=== PATIENT | male | born 1955 | race Caucasian/White ===

== ENCOUNTER 2020-10-14 17:17 | Emergency (ER) | payer OTHER ==
[~2020-10-14] VITALS: Ht 175.3 cm; Wt 97.5 kg
--- NOTE | 2020-10-14 17:25 | NUR ---
MALGORZATA GOINS From Home "Weak/dizzy/shaky" BS-77. Patient a/ox4, breathing even and unlabored, no sob noted. Needs attended. Kept comfortable. Dr. Burr at bedside for eval.
[2020-10-14] MEDS ORDERED: MECLIZINE HCL 12.5 MG TABLET PO ONE (17:30)
--- NOTE | 2020-10-14 17:30 | NUR ---
PATIENT PROVIDED A DIABETIC DIET.
[2020-10-14] MEDS ORDERED: MECLIZINE HCL 25 MG TABLET ONE (17:39)
--- NOTE | 2020-10-14 17:54 | NUR ---
patient taken to ct.
[2020-10-14 17:55] LABS: BASOPHILS # (AUTO) 0.1 /CMM (0.0-0.2); BASOPHILS % (AUTO) 0.7 % (0.0-2.0); EOSINOPHILS % (AUTO) 2.3 % (0.0-6.0); HEMATOCRIT 47 % (39-51); HEMOGLOBIN 15.2 g/dL (13.5-17.5); LYMPHOCYTES # (AUTO) 1.7 /CMM (0.8-4.8); LYMPHOCYTES % (AUTO) 23.2 % (20.0-44.0); MEAN CORPUSCULAR HGB CONC 32 g/dl (31.0-36.0); MEAN CORPUSCULAR VOLUME 89 fL (80-96); MONOCYTES # (AUTO) 0.5 /CMM (0.1-1.30); MONOCYTES % (AUTO) 7.2 % (2.0-12.0); NEUTROPHILS % (AUTO) 66.6 % (43.0-81.0); PLATELET COUNT (AUTO) 270 /CMM (150-450); RED BLOOD CELL COUNT(AUTO) 5.29 MIL/uL (4.5-6.0); WHITE BLOOD COUNT (AUTO) 7.5 K/uL (4.3-11.0)
[2020-10-14 18:04] LABS: CALCIUM, SERUM 8.7 mg/dL (8.5-10.1); CARBON DIOXIDE 28 mmol/L (21-32); CHLORIDE 103 mmol/L (98-107); CREATININE 1.1 mg/dL (0.6-1.3); GLUCOSE 103 mg/dL (74-106); POTASSIUM 4.5 mmol/L (3.5-5.1); SODIUM SERUM 139 mmol/L (136-145); UREA NITROGEN, BLOOD 12 mg/dL (7-18)
[2020-10-14] MEDS ORDERED: TAMS-12 PO (18:21)
[2020-10-14] MEDS ORDERED: GLIP1TAB6 PO (18:21)
[2020-10-14] MEDS ORDERED: LEVO50TA8 PO (18:21)
[2020-10-14] MEDS ORDERED: LOSA1TAB36 PO (18:21)
[2020-10-14] MEDS ORDERED: ATOR40TA PO (18:21)
[2020-10-14] MEDS ORDERED: ASPI-1498 PO (18:30)
[2020-10-14] MEDS ORDERED: CLOP75TA15 PO (18:30)
--- NOTE | 2020-10-14 18:54 | NUR ---
PATIENT A/OX4, BREATHING EVEN AND UNLABORED, NO SOB NOTED, NEEDS ATTENDED. KEPT COMFORTABLE. IV removed. Catheter intact and site benign. Pressure and 4x4 applied to site. No bleeding noted. Patient discharged to home in stable condition. Written and verbal after care instructions given. Patient verbalizes understanding of instruction.
[2020-10-14 19:01] VITALS: BP 153/87
== END 2020-10-14 19:01 | disposition home or self-care (01) ==
LOC: ER 17:20
DX: R42 Dizziness and giddiness (principal); I10 Essential (primary) hypertension; E11.9 Type 2 diabetes mellitus without complications; Z86.73 Personal history of transient ischemic attack (TIA), and cerebral infarction without residual deficits; Z79.82 Long term (current) use of aspirin; Z79.84 Long term (current) use of oral hypoglycemic drugs; Z79.899 Other long term (current) drug therapy
CPT/HCPCS: 36415; 70450; 71045; 80048; 82962; 84484; 85025; 93005; 99285; J8597

== ENCOUNTER 2021-07-10 11:59 | Inpatient (IN) | payer MEDICAID, OTHER ==
[~2021-07-10] VITALS: Ht 172.7 cm; Wt 96.6 kg
[~2021-07-10 11:59] MED LIST: ASPI-1498 PO; ATOR40TA PO; CLOP75TA15 PO; GLIP1TAB6 PO; LEVO50TA8 PO; LOSA1TAB36 PO; TAMS-12 PO
[2021-07-10] MEDS ORDERED: ASPI-1420 PO (12:07)
[2021-07-10] MEDS ORDERED: IOHEXOL-350 100 ML VIAL IV ONE (12:09)
[2021-07-10] MEDS ORDERED: CT SWABBABLE VALVE TRANS SET 1 EA INFUS.SET MC ONE (12:10)
[2021-07-10] MEDS ORDERED: IV NS 0.9% 250 ML IV ONE (12:10)
[2021-07-10 12:52] LABS: BASOPHILS % (AUTO) 0.4 % (0.0-2.0); EOSINOPHILS % (AUTO) 3.2 % (0.0-6.0); HEMATOCRIT 44 % (39-51); HEMOGLOBIN 14.5 g/dL (13.5-17.5); LYMPHOCYTES # (AUTO) 2.5 K/uL (0.8-4.8); LYMPHOCYTES % (AUTO) 36.6 % (20.0-44.0); MEAN CORPUSCULAR HGB CONC 33 g/dl (31.0-36.0); MEAN CORPUSCULAR VOLUME 88 fL (80-96); MONOCYTES # (AUTO) 0.5 K/uL (0.1-1.30); NEUTROPHILS # (AUTO) 3.6 K/uL (1.8-8.9); NEUTROPHILS % (AUTO) 52.8 % (43.0-81.0); PLATELET COUNT (AUTO) 274 K/uL (150-450); RED BLOOD CELL COUNT(AUTO) 4.94 MIL/uL (4.5-6.0); WHITE BLOOD COUNT (AUTO) 6.9 K/uL (4.3-11.0)
[2021-07-10] MEDS ORDERED: ASPIRIN 325 MG TABLET PO ONE (13:00)
[2021-07-10] MEDS ORDERED: ASPIRIN EC 325 MG TABLET.DR PO ONE (13:11)
[2021-07-10 13:40] LABS: CALCIUM, SERUM 8.8 mg/dL (8.5-10.1); CARBON DIOXIDE 28 mmol/L (21-32); CHLORIDE 102 mmol/L (98-107); CREATININE 1.4 mg/dL (0.6-1.3); GLUCOSE 172 mg/dL (74-106); POTASSIUM 3.5 mmol/L (3.5-5.1); SODIUM SERUM 135 mmol/L (136-145); UREA NITROGEN, BLOOD 17 mg/dL (7-18)
[2021-07-10 13:54] LABS: ALANINE AMINOTRANSFERASE 24 U/L (12-78); ALBUMIN 3.4 g/dL (3.4-5.0); ALKALINE PHOSPHATASE 88 U/L (46-116); ASPARTATE AMINOTRANSFERASE 19 U/L (15-37); BILIRUBIN,DIRECT 0.1 mg/dL (0.0-0.2); BILIRUBIN,TOTAL 0.3 mg/dL (0.2-1.0); TOTAL PROTEIN, SERUM 7.4 g/dL (6.4-8.2)
[2021-07-10] MEDS ORDERED: hydrALAZINE HCL 10 MG TABLET PO PRN (14:00)
[2021-07-10] MEDS ORDERED: ZOLPIDEM TARTRATE 5 MG TABLET PO PRN (14:00)
[2021-07-10] MEDS ORDERED: *INSULIN REGULAR(HUMULIN R)HUM 100 UNIT/ML VIAL SQ PRN (14:00)
[2021-07-10] MEDS ORDERED: ACETAMINOPHEN 325 MG TABLET PO PRN (14:00)
[2021-07-10] MEDS ORDERED: DEXTROSE 50%-WATER 50 ML DISP.SYRIN IV PRN (14:00)
[2021-07-10] MEDS ORDERED: INSULIN REGULAR, HUMAN 100 UNIT/ML 3 ML VIAL SQ PRN (14:00)
[2021-07-10] MEDS ORDERED: CLOPIDOGREL BISULFATE 75 MG TABLET ONE (14:15)
[2021-07-10] MEDS: CLOPIDOGREL BISULFATE 75 MG TABLET PO SCH (14:18)
[2021-07-10] MEDS ORDERED: Medication Not On Formulary EA (Glipizide/Metformin Hcl (Glipizide-Metformin 5-500 Mg) 1 PO SCH (17:00)
[2021-07-10] MEDS: BLOOD SUGAR DIAGNOSTIC 1 EACH STRIP VI SCH ×2 (17:21→22:45)
[2021-07-10] MEDS: METFORMIN 500 MG TABLET PO SCH (17:42)
[2021-07-10 18:00] VITALS: BP 128/77
[2021-07-10 20:00] VITALS: BP 134/97
[2021-07-10] MEDS ORDERED: ATORVASTATIN 40 MG TABLET PO SCH (22:00)
[2021-07-11] VITALS: BP 131/74
[2021-07-11 04:00] VITALS: BP 112/68
[2021-07-11] MEDS: BLOOD SUGAR DIAGNOSTIC 1 EACH STRIP VI SCH ×2 (06:40→13:51)
[2021-07-11] MEDS ORDERED: LEVOTHYROXINE SODIUM 25 MCG TABLET PO SCH (07:30)
[2021-07-11 07:34] LABS: THYROID STIMULATING HORMONE 5.183 uIU/mL (0.358-3.74)
[2021-07-11 08:00] VITALS: BP 120/69
[2021-07-11] MEDS ORDERED: LOSARTAN/HCTZ 50-12.5MG/ 1 EA TABLET PO SCH (09:00)
[2021-07-11] MEDS ORDERED: ASPIRIN EC 81 MG TABLET.DR PO SCH (09:00)
[2021-07-11] MEDS ORDERED: glipiZIDE 10 MG TABLET PO SCH (09:00)
[2021-07-11] MEDS ORDERED: TAMSULOSIN 0.4 MG CAP.SR.24H PO SCH (09:00)
[2021-07-11] MEDS ORDERED: LOSARTAN POTASSIUM 50 MG TABLET PO SCH (09:00)
[2021-07-11] MEDS ORDERED: HYDROCHLOROTHIAZIDE 25 MG TABLET PO SCH (09:00)
[2021-07-11] MEDS: METFORMIN 500 MG TABLET PO SCH (10:41)
[2021-07-11] MEDS: CLOPIDOGREL BISULFATE 75 MG TABLET PO SCH (10:43)
[2021-07-11 12:00] VITALS: BP 134/81
[2021-07-11] MEDS ORDERED: glipiZIDE 5 MG TABLET PO SCH (12:00)
== END 2021-07-11 15:45 | disposition home or self-care (01) | DRG 47 ==
LOC: ER 12:03 → TRANSITION 13:29 → TELE 16:29
PROVIDERS: ADMIT Internal Medicine; ATTEND Internal Medicine
DX: G45.9 Transient cerebral ischemic attack, unspecified (principal); I69.351 Hemiplegia and hemiparesis following cerebral infarction affecting right dominant side; E03.9 Hypothyroidism, unspecified; E11.9 Type 2 diabetes mellitus without complications; E78.5 Hyperlipidemia, unspecified; I10 Essential (primary) hypertension; Z79.84 Long term (current) use of oral hypoglycemic drugs; R29.701 NIHSS score 1; Z79.02 Long term (current) use of antithrombotics/antiplatelets; Z79.82 Long term (current) use of aspirin; Z82.49 Family history of ischemic heart disease and other diseases of the circulatory system; Z83.3 Family history of diabetes mellitus; Z20.822 Contact with and (suspected) exposure to COVID-19
CPT/HCPCS: 36415; 70450-TC; 70496-TC; 70498-TC; 70551-TC; 71045-TC; 80048-TC; 80061-TC; 80076-TC; 82962-TC; 83605-TC; 84443-TC; 84484-TC; 85025-TC; 85730-TC; 86850-TC; 87040-TC; 87081-TC; 93307-TC; 97116-TC; 97530-TC; G0378; J7050; Q9967